=== PATIENT | female | born 1960 | race Caucasian/White ===

== ENCOUNTER → 2016-10-15 | Outpatient (CLI) | payer BC ==
[~2016-10-15] MED LIST: BCPILLS PO
--- NOTE | 2016-10-15 15:34 | DIAGNOSTIC IMAGING REPORT ---
RIGHT KNEE 1 OR 2 VIEWS ROUTINE CLINICAL HISTORY: Right knee pain. COMPARISON: Knee radiographs April 28, 2013. FINDINGS: Alignment of the right knee is anatomic. There is no fracture or suspicious lesion. There is no joint effusion. There is mild medial compartment joint space narrowing with osteophytosis. IMPRESSION: 1. No acute fracture or joint effusion of the right knee. 2. Mild osteoarthritis of the medial compartment of the right knee. Electronically signed by: Ricardo Nolasco M.D. 10/15/2016 3:32 PM Dictated Date/Time: 10/15/2016 3:32 PM
== END | disposition home or self-care (01) ==
LOC: C.RAD 15:13
PROVIDERS: ATTEND Nurse Practitioner
DX: S86.911A Strain of unspecified muscle(s) and tendon(s) at lower leg level, right leg, initial encounter (principal); X58.XXXA Exposure to other specified factors, initial encounter; M25.561 Pain in right knee

== ENCOUNTER → 2016-10-21 | Outpatient (CLI) | payer BC ==
--- NOTE | 2016-10-21 15:37 | MAMMOGRAPHY REPORT ---
BILATERAL DIGITAL SCREENING MAMMOGRAM TOMOSYNTHESIS WITH CAD: 10/21/2016 CLINICAL HISTORY: Routine screening. TECHNIQUE: Breast tomosynthesis in addition to standard 2D mammography was performed. Current study was also evaluated with a Computer Aided Detection (CAD) system. COMPARISON: Comparison is made to exams dated: 10/21/2015 mammogram, 10/17/2014 mammogram, 10/16/2013 reji mogram, 10/12/2012 mammogram, 10/12/2011 mammogram, and 10/10/2010 mammogram - [facility] . BREAST COMPOSITION: There are scattered areas of fibroglandular density in both breasts. FINDINGS: No suspicious masses, calcifications, or areas of architectural distortion are noted in ei ther breast. There has been no significant interval change compared to prior exams. IMPRESSION: ACR BI-RADS CATEGORY 1: NEGATIVE There is no mammographic evidence of malignancy. A 1 year screening mammogram is recommended. The pa tient will receive written notification of the results. Approximately 10% of breast cancers are not detected with mammography. A negative mammographic report should not delay biopsy if a clinically suggestive mass is present. Sarah Melendez M.D. ah/:10/21/2016 12:38:51 Commercial Loan Underwriter: Lucio BEARDEN(R)(M), [facility] letter sent: Normal 1/2 BI-RADS Code: ACR BI-RADS Category 1: Negative
== END | disposition home or self-care (01) ==
LOC: C.MAMM 10:51
PROVIDERS: ATTEND Nurse Practitioner Family
DX: Z12.31 Encounter for screening mammogram for malignant neoplasm of breast (principal)

== ENCOUNTER → 2017-11-03 | Outpatient (CLI) | payer OTHER ==
--- NOTE | 2017-11-04 07:58 | MAMMOGRAPHY REPORT ---
UNILATERAL RIGHT DIGITAL DIAGNOSTIC MAMMOGRAM TOMOSYNTHESIS AND TARGETED RIGHT ULTRASOUND: 11/03/2017 CLINICAL HISTORY: Callback from screening mammogram for right breast asymmetry. TECHNIQUE: The study was acquired using full field digital technology and interpreted from soft copy. Breast tomosynthesis in addition to standard 2D mammography was performed. Spot compression right C C and MLO tomosynthesis images were obtained. COMPARISON: Comparison is made to exams dated: 10/25/2017 mammogram, 10/21/2016 mammogram, 10/21/2015 m ammogram, 10/17/2014 mammogram, 10/16/2013 mammogram, and 10/12/2012 mammogram - [facility] er. BREAST COMPOSITION: The tissue of right breast is almost entirely fatty. FINDINGS: Spot compression views demonstrate a persistent low-density oval circumscribed benign-appearing 6 mm mass within the right upper outer quadrant at approximately 10:00. Targeted ultrasound was performed of the right lateral breast in the region of the mammographic mass. Sonographically normal tissue i s seen in this region, without evidence of a mass or other suspicious correlate for the mammographic mass seen. However, the mass has benign mammographic features and is probably benign. IMPRESSION: ACR-BI-RADS CATEGORY 3: PROBABLY BENIGN, ULTRASOUND ACR-BI-RADS CATEGORY 3: PROBABLY YENY GN Circumscribed 6 mm mass within the right upper outer quadrant, without a clear sonographic correlate evident. The mass is probably benign and may represent a sonographically occult cyst or an intramamm srikanth lymph node. Recommend follow-up diagnostic tomosynthesis mammograms and possible targeted ultras ound of the right breast in 6 months to confirm stability. (05/05/2018) The patient has been verball y notified of the results. Some breast cancers are not detected with mammography. A negative mammographic report should not david y biopsy if a clinically suggestive mass is present. Sarah Melendez M.D. ah/:11/03/2017 14:11:25 Bed Operator: RT Britt(R)(M), [facility] letter sent: Follow Up Recommended 3 OVERALL STUDY BIRADS: 3 Probably benign
== END | disposition home or self-care (01) ==
LOC: C.MAMM 10:09
PROVIDERS: ATTEND Nurse Practitioner Family
DX: N63.11 Unspecified lump in the right breast, upper outer quadrant (principal)

== ENCOUNTER 2020-08-21 05:11 | Observation (INO) ==
--- NOTE | 2020-07-30 13:57 | PAT Medication Instructions ---
Medication Instructions Date of Service July 30, 2020 Home Medications Circulation Vein Support Otc 1 tab PO BID albuterol sulfate [ProAir RespiClick] 2 inh INHALATION Q4H PRN ibuprofen 600 mg PO HS multivitamin 1 tab PO QAM ASK your surgeon for instructions ibuprofen 600 mg PO HS STOP taking 2 weeks before surgery If surgery is within 2 weeks, stop taking as soon as possible. Circulation Vein Support Otc 1 tab PO BID DO NOT take the morning of surgery multivitamin 1 tab PO QAM Take morning of surgery OTHERWISE NOTHING TO EAT OR DRINK AFTER MIDNIGHT: albuterol sulfate [ProAir RespiClick] 2 inh INHALATION Q4H PRN (if needed) Bring your inhaler with you to the hospital. Other Notes If you have any questions please call us at [phone] or [phone] or [phone] or [phone]
--- NOTE | 2020-08-02 09:55 | Anesthesiology Consultation ---
Date of Service August 02, 2020 Assessment & Plan (1) Encounter for pre-operative examination: - COVID screening: Per assessment on 08/02: Travel screen negative, no known COVID-19 positive contacts or current COVID-19 related symptoms. Surgeon arranging preop COVID testing. Awaiting results. - Case reviewed with Dr. Snowden. No further cardiac evaluation and/or testing needed prior to surgery from his perspective. Chart Review Chart Review: Acceptable Risk for Surgery (pending surgeon-ordered PCP clearance) and Patient seen in Pre Admission Testing Teaching & Discussion Pre-Anesthesia Teaching/Discussion Notes: Instructed NPO after midnight before surgery,except medications with 15 cc of water. Medication instructions provided according to the PAT guidelines. History Surgery Operation Date: 08/21/20 07:15 Proposed Procedures p Left Total Knee Arthroplasty - Jorje Bullock MD Height/Weight Height: 5 ft 6.5 in Weight: 146.5 kg Allergies Allergy/AdvReac Type Severity Reaction Status Date / Time Sulfa (Sulfonamide Allergy Unknown Rash Verified 07/09/20 08:03 Antibiotics) Penicillins Allergy Knee Verified 08/01/20 13:26 swelling CHEMICAL Allergy Severe Tongue Uncoded 08/01/20 13:26 swelling, rash, hives Medications Home Medications Medication Instructions Recorded Confirmed Last Taken Circulation Vein Support Otc 1 tab PO BID 07/09/20 07/09/20 Unknown ibuprofen 600 mg PO HS 07/09/20 07/09/20 Unknown multivitamin 1 tab PO QAM 07/09/20 07/09/20 Unknown Past Medical History Medical History Asthma Seasonal, no recent inhaler Heart abnormality 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10, discharged from cardiology, no issues since (no further details able to be obtained per patient) History of seizures Infancy until age 8, no issues since Morbid obesity with BMI of 45.0-49.9, adult Exercise / Class Metabolic Activity III < 4 Walking/Shop/Light housework Past Surgical History Surgical History H/O wisdom tooth extraction Age 14 Past Anesthesia History No Hx of Anesthesia Complications and No Family Hx of Anesthesia Complications History of PONV No Hx of PONV and No Hx of Motion Sickness Social History Smoking Status: Never smoker Do You Dip or Chew Tobacco: No Hx Alcohol Use: Yes Alcohol type: wine alcohol intake frequency: holidays/special occasions only Hx Substance Use: No Review of Systems + snoring. No witnessed apnea events. Patient denies chest pain, shortness of breath, fever, chills, cough, wheezing, palpitations. Physical Exam Vital Signs VITALS BP 158/81 P 67 TEMP 97.9 SP02 93%RA RESP 18 PHYSICAL Full cervical extension range of motion. Full TMJ range of motion. TMD 3.5 finger breaths Mallampati Score 2 Dentition: missing molars, possible cap Lungs: clear throughout to auscultation Cardiac: regular rate and rhythm, no murmurs noted Spine: normal Carotid arteries: negative bruit Extremities: no edema Very thick neck Lab Results Anesthesia Preop Results Results Anesthesia Widget: WBC 5.11 K/uL (4.8-10.8) 08/02/20 Hgb 13.5 g/dL (12.0-16.0) 08/02/20 Hct 41.7 % (37-47) 08/02/20 Plt 215 K/uL (130-400) 08/02/20 Na 138 mmol/L (136-145) 08/02/20 K 4.0 mmol/L (3.5-5.1) 08/02/20 Cl 107 mmol/L (98-107) 08/02/20 CO2 28 mmol/L (21-32) 08/02/20 BUN 22 mg/dl (7-18) H 08/02/20 Creat 0.81 mg/dl (0.6-1.2) 08/02/20 Glucose Level 122 mg/dl (70-99) H 08/02/20 PT 9.4 Seconds (9.0-12.0) 08/02/20 PTT 24.2 Seconds (21.0-31.0) 08/02/20 INR 0.9 (0.9-1.1) 08/02/20 Urine Color Yellow 08/02/20 Urine Appearance Clear (Clear) 08/02/20 Urine pH 5.5 (4.5-7.5) 08/02/20 Urine Specific [place] 1.014 (1.000-1.030) 08/02/20 Urine Protein Trace (Negative) H 08/02/20 Urine Glucose (UA) Negative (Negative) 08/02/20 Urine Ketones Negative (Negative) 08/02/20 Urine Blood Negative (Negative) 08/02/20 Urine Nitrite Negative (Negative) 08/02/20 Urine Bilirubin Negative (Negative) 08/02/20 Urine Urobilinogen Negative (Negative) 08/02/20 Urine Leukocyte Esterase Negative (Negative) 08/02/20 Urine WBC (Auto) 1-5 /hpf (0-5) 08/02/20 Urine RBC (Auto) 0-4 /hpf (0-4) 08/02/20 Urine Hyaline Casts (Auto) 1-5 /lpf (0-5) 08/02/20 Urine Epithelial Cells (Auto) >30 /lpf (0-5) H 08/02/20 Urine Bacteria (Auto) Negative (Negative) 08/02/20 Blood Type A Positive 08/02/20 Antibody Screen NEGATIVE 08/02/20 Testing Laboratory Results Blood Type A Positive 08/02/20 09:17 Antibody Screen NEGATIVE 08/02/20 09:17 Electrocardiogram Date: 08/02/20 SR with first degree AVB at 62bpm. Otherwise normal ECG. Chest X-Ray Date: 08/02/20 FINDINGS: PA and lateral chest radiographs are compared to study dated 03/09/2009. The examination is degraded by large body habitus. The cardiomediastinal silhouette is top normal for projection noting atherosclerotic calcification of the thoracic aorta. There is mild bibasilar atelectasis. The lungs and pleural spaces are otherwise clear. There is no pneumothorax. The bony thorax appears intact. Degenerative change is seen throughout the thoracic spine. IMPRESSION: No active disease in the chest.
--- NOTE | 2020-08-02 16:21 | Electrocardiogram Report ---
Test Reason : Blood Pressure : / mmHG Vent. Rate : 062 BPM Atrial Rate : 062 BPM P-R Int : 216 ms QRS Dur : 078 ms QT Int : 400 ms P-R-T Axes : 064 037 030 degrees QTc Int : 406 ms Sinus rhythm with 1st degree A-V block Otherwise normal ECG No previous ECGs available Confirmed by Juan Antonio Waddell ([id number]) on 08/02/2020 4:21:03 PM Referred By: Jorje Bullock Confirmed By:Alvarez Waddell
--- NOTE | 2020-08-18 21:58 | History & Physical Report ---
Date of Service August 18, 2020 Assessment & Plan (1) Left knee DJD: Postoperative prescriptions for Percocet and Coumadin will be provided at discharge from the hospital. Anticipate discharge to home with home health services. Preoperative lab work, EKG, and chest x-ray have been ordered. She will see PATS for evaluation. She has an appointment to see her PCP for preoperative clearance on Wednesday. She already has access to a walker and cane. The patient is currently asymptomatic of any COVID-19 symptoms. She is aware of the COVID-19 risks associated with surgery. She will obtain COVID-19 testing, the week before surgery. PDMP was checked and there are no concerning findings. She already has her postop appointment for staple removal on 09/05/2020 with me. History of Present Illness Chief Complaint: Left knee pain Primary Care Provider: NO PCP This 60-year-old female presents for her preoperative history and physical. She is scheduled to undergo a left knee total knee arthroplasty on 08/21/2020. The patient has had left knee pain for decades. It has been tolerable for many years. She states over the last 6-9 months, it has become significantly worse. She is now having difficulty with ambulation. Pain is worse with weightbearing. It is affecting her ADLs. No numbness or tingling. She denies any significant loss of motion. Frequent night pain. No intraarticular effusion that she is aware of. No specific trauma. Preoperative imaging has been obtained. Allergies Allergy/AdvReac Type Severity Reaction Status Date / Time Sulfa (Sulfonamide Allergy Unknown Rash Verified 07/09/20 08:03 Antibiotics) Penicillins Allergy Knee Verified 08/01/20 13:26 swelling CHEMICAL Allergy Severe Tongue Uncoded 08/01/20 13:26 swelling, rash, hives Home Medications Medication Instructions Recorded Confirmed Type Circulation Vein Support Otc 1 tab PO BID 07/09/20 07/09/20 History ibuprofen 600 mg PO HS 07/09/20 07/09/20 History multivitamin 1 tab PO QAM 07/09/20 07/09/20 History Past Med/Surg History Medical History Asthma Seasonal, no recent inhaler Heart abnormality 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10, discharged from cardiology, no issues since (no further details able to be obtained per patient) History of seizures Infancy until age 8, no issues since Morbid obesity with BMI of 45.0-49.9, adult Surgical History H/O wisdom tooth extraction Age 14 Family History Other Diabetes Heart disease Kidney disease Prostate cancer Social History Smoking Status: Never smoker Second Hand Exposure: Yes (PARENTS SMOKED); Hx Alcohol Use: Yes Alcohol type: wine Hx Substance Use: No Preferred Language: Sinhala Communication Ability: Effective Felt Hat Inspector And Packer Required: No Beliefs That Will Affect Care: None Current Living Situation: Alone Feels Safe at Home: Yes Assistive Devices: Cane and Glasses Review of Systems Review of Systems: All systems reviewed & are unremarkable except as noted in HPI & below A total of 10 systems were reviewed. Physical Exam Physical Exam: Vitals: Height 168.5 cm, weight 146.8 kilograms, BMI 51.7. Temperature 36.0, BP 142/84, pulse 88, O2 sat 98% on room air, respirations 20. General: Well-developed, well-nourished, obese, large white female, in no acute distress. Sitting in a chair. Alert and oriented. Skin: Warm and dry with good turgor. No rashes or lesions. No ecchymosis or erythema. No intraarticular effusion. HEENT: Normocephalic, atraumatic. Eyes: PERRLA, EOMI. Nares and oropharynx exams deferred due to COVID precautions. Heart: RRR, no MGR. Lungs: Clear to auscultation bilaterally, no crackles, rhonchi or wheezing, good air movement. Abdomen: Obese, bowel sounds present x4, soft, nontender. No organomegaly. Musculoskeletal: Left knee evaluation reveals no intraarticular effusion. She has full terminal extension. Flexion to greater than 110 degrees. Strength is 5/5 with fair quad tone. Stable collateral ligaments. She has focal discomfort with palpation over the medial and lateral joint lines. Crepitus is palpable with motion. No defect of the patellar tendon or quadriceps tendon. Ambulates with a shuffling antalgic gait. Neurologic: Gross sensation is intact across both lower extremities by soft touch. Peripheral pulses are 2+. Results & Data Results & Data ([facility]) Diagnostic Findings Radiographic imaging previously obtained in April shows endstage DJD of the knees, left greater than right. Periarticular osteophytes, subchondral sclerosis, and joint space narrowing are all present.
[2020-08-21] MEDS ORDERED: LR 60ML/HR IV SCH (06:00)
[2020-08-21] MEDS ORDERED: TRANEXAMIC ACID 1,000 MG **IV Pre-op IV SCH (06:00)
[2020-08-21] MEDS ORDERED: LR 500ML BOLUS, THEN 15ML/HR IV SCH (06:00)
[2020-08-21] MEDS ORDERED: ROPIVACAINE 0.5% HCL/PF 150 MG, BUPIVACAINE 0.75% MPF 20 ML, EPINEPHrine 0.15 MG, Ketor... INFIL SCH (06:00)
--- NOTE | 2020-08-21 06:26 | History & Physical Bridge Note ---
Date of Service August 21, 2020 History & Physical Bridge Note I have examined the patient, reviewed the History & Physical and in the interval since the performance of the History & Physical I have noted the following changes of clinical significance: consent obtained/site verified/covid screen negative.no changes noted
[2020-08-21] MEDS ORDERED: BUPIVACAINE 0.25% 30 ML VIAL ONE (06:27)
[2020-08-21] MEDS ORDERED: BUPIVACAINE 0.5 % 5 MG/1 ML PF 10ML VIAL ONE (06:27)
[2020-08-21] MEDS ORDERED: EPINEPHrine INJ 1 MG/ML AMP ONE (06:27)
[2020-08-21] MEDS ORDERED: PROPOFOL IV EMULSION 10 MG/ML 20 ML VIAL IV ONE (06:37)
[2020-08-21] MEDS ORDERED: fentaNYL citrate 100 MCG/2 ML VIAL ONE (06:37)
[2020-08-21] MEDS ORDERED: MIDAZOLAM HCL 1 MG/ML 2ML VIAL ONE ×2 (06:37→08:27)
[2020-08-21] MEDS ORDERED: LIDOCAINE HCL 2% 2 ML VIAL/AMP(20MG/ML) INFIL ONE (06:37)
[2020-08-21] MEDS ORDERED: PROMETHAZINE HCL 12.5 MG in SODIUM CHLORIDE 0.9% 50 ML IV PRN (06:43)
[2020-08-21] MEDS ORDERED: ePHEDrine sulfate 50 MG/ML AMP IV PRN (06:43)
[2020-08-21] MEDS ORDERED: ATROPINE SULFATE 0.1 MG/ML 10ML SYR IV PRN (06:43)
[2020-08-21] MEDS ORDERED: fentaNYL citrate 100 MCG/2 ML VIAL IV PRN (06:43)
[2020-08-21] MEDS ORDERED: HYDROmorphone INJ 2 MG/ML SYR/VIAL IV PRN (06:43)
[2020-08-21] MEDS ORDERED: ONDANSETRON INJ 2 MG/ML 2 ML VIAL IV PRN ×2 (06:43→10:03)
[2020-08-21] MEDS ORDERED: Nursing to Pharmacy Communication SCH (06:45)
[2020-08-21] MEDS ORDERED: ORTHO JOINT ANESTHETIC ONE (06:50)
[2020-08-21] MEDS ORDERED: KETAMINE 50 MG/5 ML SYRINGE ONE (07:05)
--- NOTE | 2020-08-21 08:40 | Post Operative Brief Note ---
Immediate Post Op Note v1 Date of Surgery August 21, 2020 Pre & Post Diagnosis Operation Date: 08/21/20 07:00 Pre-Op Diagnosis: Left Knee Degenerative Joint Disease Post-Op Diagnosis: Left Knee Degenerative Joint Disease I identified the patient and participated in the time-out.: Yes Procedure Operation Date: 08/21/20 07:00 Actual Procedures p Left Total Knee Arthroplasty(Left) - Jorje Bullock MD Surgeon Jorje Bullock MD Extension Division [facility] Estimated Blood Loss 50 Findings Consistent with Post-Op Diagnosis
--- NOTE | 2020-08-21 08:48 | Operative Report ---
Post Operative Report Pre & Post Diagnosis Operation Date: 08/21/20 07:00 Pre-Op Diagnosis: Left Knee Degenerative Joint Disease Post-Op Diagnosis: Left Knee Degenerative Joint Disease I identified the patient and participated in the time-out.: Yes Procedure Operation Date: 08/21/20 07:00 Actual Procedures p Left Total Knee Arthroplasty(Left) - Jorje Bullock MD Surgeon CHIVO Bullock MD Fruit Worker Anny RAMIREZ Estimated Blood Loss 50 Findings Consistent with Post-Op Diagnosis Specimens see operative report Drains none Complications none Disposition Accompanied Patient To Recovery: Yes Disposition: Recovery Room Indications This 60-year-old female presented to the office with complaints of intractable bilateral knee pain, left greater than right. She had tried conservative care measures without improvement. Patient elected to proceed with surgical invention after being educated about potential risks and outcomes. Preoperative imaging was obtained. Description of Procedure Patient was administered a spinal anesthetic and then taken to the operating room where she was given sedation. She was prepped and draped in the usual sterile fashion. Please see Dr. Bullock's operative report for specifics of the procedure. I was present for the entire case from initial patient positioning through final wound closure. Assistance was provided in tissue retraction, hemostasis, trial implant placement, final implant placement, and final wound closure. Patient was taken to the recovery room in satisfactory condition. I attest to the content of the Intraoperative Record and any orders documented therein. Any exceptions are noted below.
--- NOTE | 2020-08-21 08:58 | Operative Report (OR) ---
DATE OF OPERATION: 08/21/2020 SURGEON: Jorje Bullock MD. MEDICAL RECORDS SUPERVISOR: Michael Mccormick PA-C. No resident or fellow available. PREOPERATIVE DIAGNOSIS: Osteoarthritis, left knee with varus deformity. POSTOPERATIVE DIAGNOSIS: Osteoarthritis, left knee with varus deformity. OPERATION PERFORMED: Cemented left total knee replacement. SUMMARY OF IMPLANTS: Size 2.5 left femur, size 2.5 mobile bearing tray, size 2.5 x 17.5 insert, 38 patella, 2 bags of Palacos G cement. ESTIMATED BLOOD LOSS: 50 mL. CRYSTALLOID: Per anesthesia. BONE PATHOLOGY: Pending. DVT prophylaxis per protocol. PERIOPERATIVE SITUATION: Medically cleared female who has a substantial tricompartmental osteoarthritis with [id number] medial compartment. She has a high BMI. At this point in time, she knows the risks and consequences associated with that, but wants to proceed with surgical treatment based on her intractable pain. DESCRIPTION OF PROCEDURE: The patient was appropriately identified, site verified, consent verified. Antibiotics confirmed as being given. The left lower extremity was prepped and draped in usual routine fashion. The tourniquet was inflated to 300 mmHg after exsanguination of limb with a rubber Esmarch bandage for a total of 49 minutes. A tourniquet balanced well. Midline exposure utilized. Parapatellar arthrotomy performed. Synovectomy completed, osteophytes resected. Distal femur entered. Distal femur was then resected 12 mm, proximal tibia 4 mm, extension gap was excellent. The femur was sized between a 3 and a 2.5, and was measured 3 cut 2.5. There was no notching. The flexion gap was good. Box cut was then made and a size 2.5 fit well. The tibia was sized to a 2.5, appropriate template applied and appropriate broaching and reaming carried out and with trial reduction with a 17.5 gave the best mid range stability without losing extension. The patella tracked well. The patella was resected leaving 16 mm and a 38 patella button was then seated. It tracked well. The trial implants were then removed after all the Orthomix was injected in and about the knee including posteriorly. The wound irrigated with Betadine Pulsavac and then the permanent cemented in position, tibia, femur, patella in that order. After 12 minutes, the tourniquet deflated. Minor bleeding points controlled with electrocautery. After 14 minutes, the knee was reinspected. No cement removal was required. Wound was irrigated, then the permanent liner seated, knee reduced and then closed at 30 degrees of flexion with #2 Vicryl, 2-0 Vicryl and stainless steel clips. Appropriate dressing was applied including a Edwin Dunbar dressing because of her high BMI. We will try to keep the wound protected and supported as well as possible due to her overall edema. The patient tolerated the procedure well and was transferred to recovery room in satisfactory condition having tolerated the procedure well. I attest to the content of the Intraoperative Record and any orders documented therein. Any exception s are noted below.
--- NOTE | 2020-08-21 09:09 | Discharge Summary (DS) ---
POTENTIAL DATE OF DISCHARGE: 08/22/2020. CHIEF COMPLAINT: Left knee pain. HISTORY OF PRESENT ILLNESS AND HOSPITAL COURSE: The patient underwent elective left total knee replacement. Today the hospital course has been uneventful. Longstanding pain, has varus deformity, significant disease by x-ray. Understood risks and consequences and underwent left total knee replacement, cemented. PREOPERATIVE MEDICATIONS: Please see medication reconciliation sheet, includes ibuprofen, multivitamin. ALLERGIES: ALLERGIC TO SULFA, PENICILLINS, AND CHEMICALS. She tolerates Ancef. PAST MEDICAL HISTORY: Remarkable for asthma and heart abnormality, likely an ASD that closed, history of seizures, morbid obesity, BMI of 50. PAST SURGICAL HISTORY: Remarkable for wisdom tooth extraction. FAMILY HISTORY: Diabetes, heart disease, kidney disease, prostate cancer. SOCIAL HISTORY: Reveals that she does not smoke except had secondhand exposure from her parents. Social alcohol. Lives alone. Feels safe. Uses a cane and wears glasses. REVIEW OF SYSTEMS: Reveals no chest pain, shortness of breath, fever, chills, nausea, vomiting or headache. ASSESSMENT: Doing well status post left total knee replacement. We will have case management assess and set up home services. Follow up on Wednesday for dressing change, removal in the office.
--- NOTE | 2020-08-21 09:13 | Progress Notes ---
DATE: 08/21/2020 Postop check, status post left total knee replacement. The patient tolerated the procedure well. She denies any chest pain, shortness of breath, fever, chills, nausea, vomiting or headache. Spinal is in place, has no pain. Wound dressing clean, dry and intact. X-rays are pending. Abdomen is soft, nontender. Upper extremity within normal limits. Facial exam within normal limits. ASSESSMENT: Doing well. Continue postoperative care pathway. Case management would be involved. High BMI; however, normal, needs to get up and move around as soon as possible. Use extra-large knee immobilizer for this. Postoperative antibiotics per course. Deep vein thrombosis prophylaxis per protocol. Discussed the situation with her brother. He was informed she did well to date.
--- NOTE | 2020-08-21 09:30 | XRay Report ---
XR knee LT 1 or 2V routine CLINICAL HISTORY: Postoperative study. Degenerative arthritis. COMPARISON: 04/15/2020 DISCUSSION: There are postsurgical changes of a total left knee arthroplasty and patellar resurfacing . The femoral and tibial components appear well seated. There is gas present within the soft tissues consistent with recent surgery. There are overlying skin jasbir. IMPRESSION: Postsurgical changes of a total left knee arthroplasty. ACT 112: Negative or not required by law. Electronically signed by: Jesus Dailey M.D. 08/21/2020 9:29 AM
--- NOTE | 2020-08-21 09:32 | Anesthesiology Progress Note ---
Date of Service August 21, 2020 Anesthesia Post Procedure Vital Signs Vital Signs: Temp Pulse Pulse Resp BP BP Pulse Ox 08/21/20 09:20 64 18 137/65 98 08/21/20 09:10 65 18 120/57 L 98 08/21/20 09:00 65 14 114/60 100 08/21/20 08:50 69 15 111/52 L 100 08/21/20 08:48 36.3 C L 74 17 116/57 L 100 08/21/20 05:52 36.7 C 78 18 168/88 H 97 Pain Intensity Left Knee: Pain Intensity: 3 Transfer of Care Handoff Completed per policy Notes Mental Status: alert / awake / arousable and participated in evaluation Patient Amnestic to Procedure: Yes Nausea / Vomiting: adequately controlled Pain: adequately controlled Airway Patency, RR, SpO2: stable & adequate BP & HR: stable & adequate Hydration State: stable & adequate Anesthetic Complications: no major complications apparent and Pt Satisfied with anesthetic care
[2020-08-21] MEDS ORDERED: diphenhydrAMINE 50 MG/ML VIAL IV PRN (10:03)
[2020-08-21] MEDS ORDERED: oxyCODONE HCL IR 5 MG TAB (IMMEDIATE RELEASE) PO PRN (10:03)
[2020-08-21] MEDS ORDERED: ALUMINUM/MAGNESIUM SUSP 30 ML UDC PO PRN (10:03)
[2020-08-21] MEDS ORDERED: bisacodyL 10 MG SUPP PR PRN (10:03)
[2020-08-21] MEDS ORDERED: HYDROmorphone INJ 0.5 MG/0.5 ML SYR IV PRN (10:03)
[2020-08-21] MEDS ORDERED: MAGNESIUM HYDROXIDE SUSP 30 ML UDC PO PRN (10:03)
[2020-08-21] MEDS ORDERED: METOCLOPRAMIDE HCL INJ 5 MG/ML 2 ML VIAL IV PRN (10:03)
[2020-08-21] MEDS ORDERED: NALOXONE HCL 0.4 MG/1 ML VIAL/CARP IV PRN (10:03)
[2020-08-21] MEDS ORDERED: SODIUM CHLORIDE 0.9% 1000ML 1,000 ML IV SCH (10:03)
[2020-08-21] MEDS: KETOROLAC 30 MG/ML VIAL IV SCH ×3 (10:56→21:24)
--- NOTE | 2020-08-21 11:07 | Progress Notes ---
DATE: 08/21/2020 SUBJECTIVE: Postop check. The patient is doing well. Denies any chest pain, shortness of breath, fever, chills, nausea, vomiting or headache. OBJECTIVE: Vital signs are stable. She is afebrile. Spinal is wearing off and starting to get toe extension and flexion, both lower extremities. Wound dressing clean, dry and intact. X-RAYS: Postop look excellent. ASSESSMENT: Continue postoperative care pathway. Mobilize CHRISTY. Hep-Lock IV since she eats a full meal.
[2020-08-21] MEDS: DOCUSATE SODIUM 100 MG CAP PO SCH ×2 (12:15→21:23)
[2020-08-21] MEDS: MULTIVITAMIN TAB PO SCH (12:15)
[2020-08-21] MEDS ORDERED: PNEUMOCOCCAL POLYSACCHARIDES 25 MCG/0.5 ML VIAL/SYR IM ONE (14:45)
[2020-08-21] MEDS ORDERED: TRANEXAMIC ACID / 0.7% NACL 1,000 MG/100 ML BAG IV SCH (14:52)
[2020-08-21] MEDS: ACETAMINOPHEN 500 MG TAB PO SCH ×2 (15:02→21:23)
[2020-08-21] MEDS: ceFAZolin 2000MG 2,000 MG/15 ML SYR IV SCH ×2 (15:03→23:16)
[2020-08-21 15:21] LABS: Prothrombin Time 9.8 Seconds (9.0-12.0)
[2020-08-21] MEDS: ORTHO WARFARIN NOMOGRAM SCH (15:46)
[2020-08-21] MEDS ORDERED: WARFARIN SOD 5 MG TAB PO SCH (16:00)
[2020-08-21] MEDS: ASCORBIC ACID 500 MG TAB PO SCH (17:12)
[2020-08-21] MEDS: FERROUS GLUCONATE 324 MG TAB PO SCH (17:12)
[2020-08-21] MEDS ORDERED: SENNA 8.6 MG TAB PO SCH (21:00)
[2020-08-22] MEDS: KETOROLAC 30 MG/ML VIAL IV SCH (04:38)
[2020-08-22] MEDS: ACETAMINOPHEN 500 MG TAB PO SCH (06:02)
[2020-08-22 07:27] LABS: Hematocrit (blood only) 35.5 % (37-47); Hemoglobin 11.4 g/dL (12.0-16.0); Mean Corpuscular Hemoglobin 28.8 pg (25-34); Mean Corpuscular Hgb Conc 32.1 g/dL (32-36); Mean Corpuscular Volume 89.6 fL (80-100); Mean Platelet Volume 10.3 fL (7.4-10.4); Platelet Count 198 K/uL (130-400); RDW Coefficient of Variation 13.7 % (11.5-14.5); Red Blood Count 3.96 M/uL (4.2-5.4); White Blood Count 7.66 K/uL (4.8-10.8)
[2020-08-22 07:37] LABS: Prothrombin Time 10.2 Seconds (9.0-12.0)
--- NOTE | 2020-08-22 07:53 | Progress Notes ---
DATE: 08/22/2020 SUBJECTIVE: Postop day #1 status post left total knee replacement. The patient is doing well. She is sitting up in her chair. She is in good spirits. She denies chest pain, shortness of breath, fever, chills, nausea, vomiting or headache. OBJECTIVE: Vital signs are stable. She is afebrile. She is eating, voiding, drinking. Calves nontender. Neurovascular check, femoral sciatic nerve is normal. Labs pending. ASSESSMENT: Doing well. Discharge to home today after PT, OT. Coumadin dose per nomogram.
[2020-08-22 07:54] LABS: BUN Creatinine Ratio 24.3 (10-20); Creatinine Clr Calc Pharmacy 93.6 ml/min; Est GFR (African American) 76.3 ml/min; Est GFR (Non-African American) 65.9 ml/min; Potassium 4.5 mmol/L (3.5-5.1)
[2020-08-22] MEDS ORDERED: dexAMETHasone 10 MG in SYRINGE 0 ML IV SCH (08:00)
[2020-08-22] MEDS: ASCORBIC ACID 500 MG TAB PO SCH (08:50)
[2020-08-22] MEDS: FERROUS GLUCONATE 324 MG TAB PO SCH (08:50)
[2020-08-22] MEDS: MULTIVITAMIN TAB PO SCH (08:50)
[2020-08-22] MEDS: DOCUSATE SODIUM 100 MG CAP PO SCH (08:53)
--- NOTE | 2020-08-22 10:36 | Orthopedic Progress Note ---
Date of Service August 22, 2020 Assessment & Plan (1) S/P total knee replacement using cement: Patient was seen in her room. Conservative care measures were discussed. Postsurgical dressings were changed by me. [place] type dressing was applied for edema control. She will return to the office on Wednesday for another dressing change. Patient is aware. Anticipate discharge to home today after PT/OT. Patient would like to stay for lunch. Written discharge instructions were provided. Coumadin today per nomogram. Prescriptions for Percocet and Coumadin were sent to her pharmacy. Follow-up in the office on September 05 as scheduled for staple removal. Continue use of the walker for ambulation. Admission and Anticipated Discharge Date Admission Date: August 21, 2020 Subjective Patient is seen in her room this morning. She is sitting up in bed. In good spirits. Conversive. Denies any chest pain, nausea, vomiting, shortness of breath, or abdominal pain. No significant knee pain at this time. She states she slept fairly well. She has already been out of bed, and feels ready for discharge to home. No other complaints. Review of Systems Review of Systems: Unchanged from yesterday. Physical Exam Physical Exam: General: Well-developed, well-nourished, middle-aged female, in no acute distress. Sitting in her bed. Alert and oriented. Conversive. Skin: Warm and dry with good turgor. No rashes or lesions. Postsurgical dressings are in place. Upon removal, she has no significant ecchymosis or edema. [place] are intact. Wound edges are well approximated. No active bleeding. Scant dried drainage on her dressings. Musculoskeletal: Patient has intact motor function of her hip, knee, and ankle. Full terminal extension. Flexion to around 45 degrees easily. She is able to perform a straight leg raise with minimal assistance. Neurologic: Gross sensation is intact across the left lower extremity by soft touch. Peripheral pulses are 2+. Results & Data ([facility]) Vital Signs (Past 12 Hours) Vital Signs Temp Pulse Resp BP Pulse Ox 08/22/20 07:54 36.5 C 62 16 125/73 96 08/22/20 03:35 36.8 C 80 16 136/83 95 08/21/20 22:35 36.9 C 69 16 134/83 91 Laboratory Results H&H obtained today are 11.4 and 35.5. WBCs normal at 7.66. INR is 1.0. PRP is almost entirely unremarkable. Mild elevation in glucose at 144. Mild elevation in BUN at 23. Sodium and potassium are normal.
[2020-08-22] MEDS: ORTHO WARFARIN NOMOGRAM SCH (12:05)
[2020-08-22] MEDS ORDERED: WARFARIN SOD 5 MG TAB PO STA (12:13)
== END 2020-08-22 13:41 | disposition home health service (06) ==
LOC: ASU 05:11 → 3E 05:11

== ENCOUNTER 2023-09-15 06:46 | Observation (INO) ==
--- NOTE | 2023-08-17 14:33 | PAT Medication Instructions ---
Medication Instructions Date of Service August 17, 2023 Home Medications multivitamin 1 tab PO QDD Circulation And Vein Support 1 tab PO BID berberine-herbal comb no.18 capsule 1 cap PO QAM cinnamon bark 1 dose PO QAM Fibermucil 1 tabs PO BID albuterol sulfate 90 mcg/actuation aerosol inhaler 1 inh inhalation QID PRN Wheezing ascorbic acid 7.5 mg-vit E 7.5 unit-biotin 1,250 mcg chewable tablet (Hair,Skin,Nails with Biotin) 1 tab PO QAM aspirin 81 mg tablet,delayed release 81 mg PO DAILY PRN Pain cranberry conc 250 mg-vit C 30 mg-Bacillus coagulans 3.5 mg tablet (Cranberry Urinary Tract Health) 1 tab PO DAILY loratadine 10 mg tablet (Claritin) 10 mg PO DAILY PRN Congestion metformin 500 mg tablet 500 mg PO QAM sitagliptin phosphate 25 mg tablet (Januvia) 25 mg PO PM MEDICATION INSTRUCTIONS: Continue as directed albuterol sulfate 90 mcg/actuation aerosol inhaler 1 inh inhalation QID PRN Wheezing (use if needed; BRING TO HOSPITAL) ASK your prescriber and surgeon aspirin 81 mg tablet,delayed release 81 mg PO DAILY PRN Pain STOP taking 2 weeks before surgery cranberry conc 250 mg-vit C 30 mg-Bacillus coagulans 3.5 mg tablet (Cranberry Urinary Tract Health) 1 tab PO DAILY ascorbic acid 7.5 mg-vit E 7.5 unit-biotin 1,250 mcg chewable tablet (Hair,Skin,Nails with Biotin) 1 tab PO QAM Circulation And Vein Support 1 tab PO BID berberine-herbal comb no.18 capsule 1 cap PO QAM cinnamon bark 1 dose PO QAM DO NOT take the morning of surgery metformin 500 mg tablet 500 mg PO QAM Fibermucil 1 tabs PO BID loratadine 10 mg tablet (Claritin) 10 mg PO DAILY PRN Congestion Take evening before surgery sitagliptin phosphate 25 mg tablet (Januvia) 25 mg PO PM multivitamin 1 tab PO QDD metformin 500 mg tablet 500 mg PO QAM Fibermucil 1 tabs PO BID Other Notes Reminder: NOTHING TO EAT OR DRINK AFTER MIDNIGHT If you have any questions please call us at [phone] or [phone] or [phone] or [phone]
--- NOTE | 2023-08-27 10:19 | Anesthesiology Consultation ---
Date of Service August 27, 2023 Assessment & Plan (1) Encounter for pre-operative examination: - cardiac murmur-Case discussed with Dr. Ballard who advised updating echocardiogram if feasible prior to surgery, but that if it could not be completed patient can proceed given tolerance of neuraxial anesthesia with previous orthopedic surgery. Message left requesting return call from patient. Optimization form completed to be faxed to PCP. - check BSG am DOS. - surgeon ordered medical clearance (Dr. Noelle Lovelace). - Outpatient joint assessment: Patient is currently scheduled for inpatient pathway. If re-evaluated and patient/surgeon requests outpatient pathway, patient is not recommended candidate for outpatient joint program from anesthesia standpoint. Chart Review Chart Review: Pending: Refer to Additional Notes / Consult section and Patient seen in Pre Admission Testing Teaching & Discussion Pre-Anesthesia Teaching/Discussion Notes: Instructed NPO after midnight before surgery, except medications with 15 cc of water. Medication instructions provided according to the PAT guidelines. History Surgery Operation Date: 09/15/23 07:00 Proposed Procedures p Right Total Knee Arthroplasty - Jorje Bullock MD Height/Weight Height: 5 ft 6.5 in Weight: 133.3 kg Allergies Allergy/AdvReac Type Severity Reaction Status Date / Time Penicillins Allergy Unknown Knee Verified 08/16/23 11:50 swelling Sulfa (Sulfonamide Allergy Unknown Rash Verified 08/16/23 11:50 Antibiotics) purell Allergy Intermediate lips swell Uncoded 08/16/23 11:50 adilene products Allergy Unknown J&J Uncoded 08/16/23 11:50 CLEANING PRODCUTS - Rash, BLISTERS MOUTH/THROAT, SINUSES Medications Home Medications Medication Instructions Recorded Confirmed Last Taken multivitamin 1 tab PO QDD 07/09/20 08/16/23 07/01/21 Circulation And Vein Support 1 tab PO BID 06/19/21 08/16/23 07/01/21 berberine-herbal comb no.18 capsule 1 cap PO QAM 06/19/21 08/16/23 07/01/21 cinnamon bark 1 dose PO QAM 09/11/22 08/16/23 Unknown Fibermucil 1 tabs PO BID 08/16/23 08/16/23 Unknown albuterol sulfate 90 mcg/actuation 1 inh inhalation QID PRN Wheezing 08/16/23 08/16/23 Unknown aerosol inhaler ascorbic acid 7.5 mg-vit E 7.5 1 tab PO QAM 08/16/23 08/16/23 Unknown unit-biotin 1,250 mcg chewable tablet (Hair,Skin,Nails with Biotin) aspirin 81 mg tablet,delayed 81 mg PO DAILY PRN Pain 08/16/23 08/16/23 Unknown release cranberry conc 250 mg-vit C 30 1 tab PO DAILY 08/16/23 08/16/23 Unknown mg-Bacillus coagulans 3.5 mg tablet (Cranberry Urinary Tract Health) loratadine 10 mg tablet (Claritin) 10 mg PO DAILY PRN Congestion 08/16/23 08/16/23 Unknown metformin 500 mg tablet 500 mg PO QAM 08/16/23 08/16/23 Unknown sitagliptin phosphate 25 mg tablet 25 mg PO PM 08/16/23 08/16/23 Unknown (Tariq) Past Medical History Medical History (Updated 08/27/23 @ 10:22 by Sharita Justin PA-C) Asthma Seasonal per pt, more affected in fall-denies needing rescue inhaler recently BMI 50.0-59.9, adult Cataract right eye Diabetes mellitus, type 2 NIDDM GERD (gastroesophageal reflux disease) rare Heart abnormality 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 Exercise / Class Metabolic Activity III < 4 Walking/Shop/Light housework (denies chest discomfort or shortness of breath with usual activities, less than 8 steps in home) Past Family History Family History Aunt Diabetes Uncle Diabetes Aunt Diabetes Other Heart disease Kidney disease Prostate cancer Past Surgical History Surgical History H/O wisdom tooth extraction Age 14 History of dilatation and curettage History of total left knee replacement 08/21/2020: SAB at L3 + PNB. No postop issues per anesthesia progress note. Past Anesthesia History No Family Hx of Anesthesia Complications and Other (awareness with 2020 TKA) History of PONV No Hx of Motion Sickness and History of PONV (in EMR-patient denies) Social History Smoking Status: Never smoker Do You Dip or Chew Tobacco: No Hx Alcohol Use: No Hx Substance Use: No substance use type: does not use Review of Systems Patient denies chest pain, shortness of breath, dyspnea on exertion, fever, chills, cough, wheezing, or palpitations. Physical Exam Vital Signs Vitals BP 135/98 P 71 TEMP 98.1 SP02 94% on RA RESP 17 Physical Patient resting comfortably in chair in no acute distress, alert and oriented, responding appropriately throughout visit Full cervical extension range of motion without pain TMD 3.5 finger breadths Mallampati Score 2 Dentition: several caps/crowns, denies chipped or loose teeth, implants or bridges Lungs: normal respiratory effort. Good air movement, clear throughout to auscultation, no adventitious breath sounds Cardiac: regular rate and rhythm, 2/6 systolic murmur (known), no gallops or rubs Carotid arteries: negative bruit bilat Lab Results Anesthesia Preop Results Results Anesthesia Widget: WBC 4.37 K/ul (4.8-10.8) L 08/27/23 Hgb 13.6 g/dl (12.0-16.0) 08/27/23 Hct 43.0 % (37.0-47.0) 08/27/23 Plt 202 K/uL (130-400) 08/27/23 Na 140 mmol/L (136-145) 08/27/23 K 4.7 mmol/L (3.5-5.1) 08/27/23 Cl 104 mmol/L (98-107) 08/27/23 CO2 30 mmol/L (21-32) 08/27/23 BUN 19 mg/dl (6-23) 08/27/23 Creat 0.87 mg/dl (0.6-1.2) 08/27/23 Glucose Level 160 mg/dl (70-99(Fasting)) H 08/27/23 PT 9.9 Seconds (9.0-12.0) 05/17/24 PTT 26 Seconds (21-31) 08/27/23 INR 0.9 (0.9-1.1) 08/27/23 HA1c 7.3 % (4.5-5.6) H 08/27/23 Urine Color Yellow 08/27/23 Urine Appearance Clear (Clear) 08/27/23 Urine pH 5.5 (4.5-7.5) 08/27/23 Urine Specific [place] 1.021 (1.000-1.030) 08/27/23 Urine Protein 1+ (Negative) H 08/27/23 Urine Glucose (UA) Negative (Negative) 08/27/23 Urine Ketones Negative (Negative) 08/27/23 Urine Blood Negative (Negative) 08/27/23 Urine Nitrite Negative (Negative) 08/27/23 Urine Bilirubin Negative (Negative) 08/27/23 Urine Urobilinogen Negative (Negative) 08/27/23 Urine Leukocyte Esterase 1+ (Negative) H 08/27/23 Urine WBC (Auto) 6-10 /hpf (0-5) H 08/27/23 Urine RBC (Auto) 0-2 /hpf (0-2) 08/27/23 Urine Hyaline Casts (Auto) 0-2 /lpf (0-2) 08/27/23 Urine Epithelial Cells (Auto) 3-5 /hpf (0-2) H 08/27/23 Urine Bacteria (Auto) None Seen (None Seen) 08/27/23 Blood Type A Positive 08/27/23 Antibody Screen NEGATIVE 08/27/23 Testing Electrocardiogram Date: 08/27/23 Sinus rhythm with 1st degree AV block with occasional PVCs, rate 71 bpm Chest X-Ray Date: 08/27/23 No acute chest disease.
--- NOTE | 2023-09-15 05:16 | History & Physical Bridge Note ---
Date of Service September 15, 2023 History & Physical Bridge Note I have examined the patient, reviewed the History & Physical and in the interval since the performance of the History & Physical I have noted the following changes of clinical significance:consent and site verified. no changes noted
[~2023-09-15 06:46] MED LIST changes: -BCPILLS PO; +BUPIVACAINE 0.25% PF 30 ML VIAL ONE; +BUPIVACAINE 0.5 % 5 MG/1 ML PF 10ML VIAL ONE
[2023-09-15] MEDS ORDERED: MIDAZOLAM HCL 1 MG/ML 2ML VIAL ONE (07:13)
[2023-09-15] MEDS ORDERED: fentaNYL citrate PF 100 MCG/2 ML VIAL ONE ×3 (07:13→09:27)
[2023-09-15] MEDS: LR 60ML/HR IV SCH (07:49)
[2023-09-15] MEDS: LR 15ML/HR IV SCH (07:53)
[2023-09-15] MEDS ORDERED: ATROPINE SULFATE 0.1 MG/ML 10ML SYR IV PRN (08:31)
[2023-09-15] MEDS ORDERED: ONDANSETRON INJ 2 MG/ML 2 ML VIAL IV PRN ×2 (08:31→11:51)
[2023-09-15] MEDS ORDERED: ePHEDrine sulfate 50 MG/ML AMP IV PRN (08:31)
[2023-09-15] MEDS: TRANEXAMIC ACID 1,000 MG **IV Pre-op IV SCH (08:46)
[2023-09-15] MEDS ORDERED: PROPOFOL IV EMULSION 10 MG/ML 20 ML VIAL IV ONE (09:00)
[2023-09-15] MEDS ORDERED: SUCCINYLCHOLINE CHLORIDE 20 MG/ML 10 ML VIAL IV ONE (09:00)
[2023-09-15] MEDS ORDERED: ROCURONIUM BROMIDE 10 MG/ML 5 ML VIAL IV ONE (09:00)
[2023-09-15] MEDS ORDERED: SUGAMMADEX SODIUM 200 MG/2 ML VIAL IV ONE ×2 (09:00)
[2023-09-15] MEDS ORDERED: ONDANSETRON INJ 2 MG/ML 2 ML VIAL ONE (09:00)
[2023-09-15] MEDS ORDERED: DEXAMETHASONE SOD INJ 4 MG/ML VIAL ONE (09:00)
[2023-09-15] MEDS: ceFAZolin 3000MG 3,000 MG/72.5 ML BAG IV SCH (09:02)
[2023-09-15] MEDS ORDERED: PHENYLEPHRINE 100MCG/ML 10ML SYR IV ONE (09:04)
[2023-09-15] MEDS: ORTHO JOINT ANESTHETIC ONE (09:27)
[2023-09-15] MEDS: TRANEXAMIC ACID 1,000 MG **IV Intra-op IV SCH (09:51)
[2023-09-15] MEDS: ceFAZolin 2,000 MG/15 ML IV PUSH IV ONE (09:52)
[2023-09-15] MEDS: ROPIVACAINE 0.5% HCL/PF 246 MG, Ketorolac (*for OR use only*) 30 MG, EPINEPHrine 30MG/3... INFIL SCH (10:09)
--- NOTE | 2023-09-15 10:20 | Post Operative Brief Note ---
Immediate Post Op Note Date of Surgery September 15, 2023 Pre & Post Diagnosis Operation Date: 09/15/23 08:50 Pre-Op Diagnosis: Right Knee Degenerative Joint Disease Post-Op Diagnosis: Right Knee Degenerative Joint Disease I identified the patient and participated in the time-out.: Yes Procedure Operation Date: 09/15/23 08:50 Actual Procedures p Right Total Knee Arthroplasty(Right) - Jorje Bullock MD Surgeon Jorje Bullock MD [facility] resident or fellow available Estimated Blood Loss 50 Findings Consistent with Post-Op Diagnosis Severe osteoarthritis medial compartment patellofemoral joint varus alignment Fluids See anesthesia report Complications None
--- NOTE | 2023-09-15 10:23 | Operative Report ---
Post Operative Report Pre & Post Diagnosis Operation Date: 09/15/23 08:50 Pre-Op Diagnosis: Right Knee Degenerative Joint Disease Post-Op Diagnosis: Right Knee Degenerative Joint Disease I identified the patient and participated in the time-out.: Yes Procedure Operation Date: 09/15/23 08:50 Actual Procedures p Right Total Knee Arthroplasty(Right) - Jorje Bullock MD Surgeon Jorje Bullock MD [employer]pensing Supervisor Anny no resident or fellow available Estimated Blood Loss 50 Findings Consistent with Post-Op Diagnosis Severe medial patellofemoral disease Fluids See anesthesia Specimens Bone pathology Drains None Complications None Indications Severe pain failed conservative management Description of Procedure After the patient was appropriately identified site verified consent verified antibiotics confirmed as being given the right lower extremity was prepped and draped use routine fashion. The tourniquet was inflated to 300 mmHg for total of approximately 50 minutes. Midline exposure was utilized parapatellar arthrotomy performed synovectomy completed osteophytes resected distal femur entered cruciates resected tibia subluxated menisci resected. Distal femur resected 9 mm proximal tibia 4 mm extension gap was excellent. Femur was then sized to a size 5 and appropriate cutting block applied anterior posterior, chamfer cuts made. The flexion gap was checked and was excellent posterior capsule was injected with the Ortho mix. The box cut was then made to size 5 femur fit well. The tibia was then broached and reamed to a size 4 and 6 mm spacer size 5 matching the femur fit well and allowed excellent range of motion excellent midrange stability full extension full flexion. Patella slightly now tracked the light lengthening of the lateral retinaculum was performed did not go through the synovium and allowed excellent tracking. The patella was very small of the resection was only 7 mm left about 12 mm thick. The 35 button was then seated. It tracked well. Ortho mix was then injected about the knee all trial elements were removed wound was irrigated with Betadine Pulsavac and then the permanent cemented into position tibia femur and patella in that order a 12 minutes tourniquet deflated minor bleeding points controlled electrocautery at 14 minutes the trial spacer was removed no cement removal was required wound was irrigated with Betadine Pulsavac and then the permanent liner seated the knee reduced and closed at 40 degrees of flexion using #2 Vicryl 2-0 Vicryl and standstill clips appropriate dressing applied the patient transferred to recovery in satisfactory addition he tolerated the procedure well. EBL was 75 cc or less crystalloid per anesthesia bone pathology pending DVT prophylaxis per protocol. Summary of implants ATT UNE total knee system by [employer] size 5 femur size 4 tibia 6 mm thick spacer size 5 matching the femur 35 patella 2 bags of [place] G cement. I attest to the content of the Intraoperative Record and any orders documented therein. Any exceptions are noted below.
--- NOTE | 2023-09-15 10:24 | Orthopedic Progress Note ---
Date of Service September 15, 2023 Orthopedic Progress Note Postop note status post right total knee replacement tolerated well. No major issues. Vital signs stable denies chest pain shortness breath fever chills nausea vomiting or headache. X-rays pending. Continue with care pathway. Family contacted.
--- NOTE | 2023-09-15 10:26 | Discharge Summary ---
Date of Service September 16, 2023 Admission HPI Per Admitting Provider Osteoarthritis right knee Principal Diagnosis Osteoarthritis right knee Discharge Data Allergies Allergy/AdvReac Type Severity Reaction Status Date / Time Penicillins Allergy Unknown Knee Verified 09/15/23 07:14 swelling Sulfa (Sulfonamide Allergy Unknown Rash Verified 09/15/23 07:14 Antibiotics) fluticasone Allergy Verified 09/15/23 07:14 [From Advair Diskus] omeprazole Allergy Verified 09/15/23 07:14 salmeterol Allergy Verified 09/15/23 07:14 [From Advair Diskus] purell Allergy Intermediate lips swell Uncoded 09/15/23 07:14 adilene products Allergy Unknown J&J Uncoded 09/15/23 07:14 CLEANING PRODCUTS - Rash, BLISTERS MOUTH/THROAT, SINUSES Vaccinations None Consultations None Procedures Performed Operation Date: 09/15/23 08:50 Actual Procedures p Right Total Knee Arthroplasty(Right) - Jorje Bullock MD Ordered Studies 09/15/23 05:00 US - OR guided needle placemen Routine Hospital Course (1) Status post left knee replacement: (2) Status post right knee replacement: Patient had an acute Plan Continue care pathway for right total knee replacement Total Time Total Time Spent Total Time Spent (In Minutes): 5 minutes Discharge Plan Discharge Items Reason For Visit: Right Knee Osteoarthritis Discharge Diagnosis: Same Condition on Discharge: Good Activity: Per Instructions section Lifting: Gradually increase as tolerated Bathing: Keep incision dry Sexual Activity: Wait until after follow-up appointment Exercise/Sports: Wait until after follow-up appointment Follow-up/Referrals: Noelle Lovelace CRNP [Primary Care Provider] - Addtl Attending Provider Instructions: DIET: * Resume previous diet. MEDICATIONS: * Please take your prescriptions as instructed at your pre-op appointment and/or see medication discharge instructions listed above. * If concerns develop, call your physician's office at . SPECIAL CARE INSTRUCTIONS: * Ice/Elevate as instructed. * Keep dressing clean, dry, intact. * Your surgical extremity may be discolored due to prepping agents used on the skin. A bluish-green tint is a normal variant and should not cause alarm. Call your doctor at [phone] if: * Temperature above 101 degrees * Pain not relieved by pain medicine ordered * There is increased drainage or redness from any incision * You have any unanswered questions, problems or concerns. FOLLOW UP VISIT: * If not already scheduled, please call the office at to schedule a follow-up appointment. Pending Studies at Discharge: Yes (Bone pathology) Stand-Alone Forms: My [facility] Medications and DC Order Prescriptions: No Action cinnamon bark 1 dose PO QAM multivitamin Tablet 1 tab PO QDD metformin 500 mg Tablet 500 mg PO QAM Januvia 25 mg Tablet 25 mg PO PM Hair, Skin, Nails with Biotin 7.5-7.5-1,250 mg-unit-mcg Tablet,Chewable 1 tab PO QAM Fibermucil 1 tabs PO BID Cranberry Urinary Tract Health 250-30-3.5 mg Tablet 1 tab PO DAILY albuterol sulfate 90 mcg/actuation Hfa Aerosol Inhaler 1 inh INHALATION QID PRN (Reason: Wheezing) loratadine [Claritin] 10 mg Tablet 10 mg PO DAILY PRN (Reason: Congestion) aspirin [Aspir-81] 81 mg Tablet,Delayed Release (Dr/Ec) 81 mg PO DAILY PRN (Reason: Pain) lisinopril 2.5 mg Tablet 2.5 mg PO DAILY berberine-herbal comb no.18 Capsule 1 cap PO QAM Circulation And Vein Support 1 tab PO BID Patient Comments: OTC Admission Data Admit Date/Time: 09/15/23 10:43 Attending Provider: Jorje Bullock Admit Provider: Jorje Bullock Primary Care Provider: Noelle Lovelace
--- NOTE | 2023-09-15 10:35 | Operative Report ---
Post Operative Report Pre & Post Diagnosis Operation Date: 09/15/23 08:50 Pre-Op Diagnosis: Right Knee Degenerative Joint Disease Post-Op Diagnosis: Right Knee Degenerative Joint Disease I identified the patient and participated in the time-out.: Yes Procedure Operation Date: 09/15/23 08:50 Actual Procedures p Right Total Knee Arthroplasty(Right) - Jorje Bullock MD Surgeon CHIVO Bullock MD Gas Worker Anny RAMIREZ no resident or fellow available Estimated Blood Loss 50 Findings Consistent with Post-Op Diagnosis see operative report Specimens see operative report Drains none Complications none Disposition Accompanied Patient To Recovery: Yes Indications This 63 year old female presented to the office with complaints of persisting right knee pain. She had tried conservative care measures without improvement. She elected to proceed with surgical intervention after being educated about potential risks and outcomes. Preoperative imaging was obtained. Description of Procedure The patient was given a spinal anesthetic and then taken to the operating room where she was given sedation. She was prepped and draped in the usual sterile fashion. Please see Dr. Bullock's operative report for specifics of the procedure. I was present for the entire case from initial patient positioning through final closure. Assistance was provided in tissue retraction, hemostasis, trial implant placement, final implant placement, and final wound closure. The patient was taken to the recovery room in satisfactory condition. I attest to the content of the Intraoperative Record and any orders documented therein. Any exceptions are noted below.
[2023-09-15] MEDS: fentaNYL citrate PF 100 MCG/2 ML VIAL IV PRN (10:39)
[2023-09-15] MEDS: HYDROmorphone INJ 1 MG/ML SYRINGE IV PRN (11:00)
--- NOTE | 2023-09-15 11:25 | XRay Report ---
XR knee RT 1 or 2V routine HISTORY: 63 years-old Female S/P R TKA right knee arthroplasty COMPARISON: 08/27/2023 TECHNIQUE: 2 views of the right knee FINDINGS: Total joint arthroplasty with patellar resurfacing. Anterior midline skin jasbir with expected posto perative soft tissue swelling and deep tissue air. No acute fracture, dislocation or unexpected opaqu e foreign body. IMPRESSION: Total joint arthroplasty with expected postoperative changes. ACT 112: Negative or not required by law. The above report was generated using voice recognition software. It may contain grammatical, syntax o r spelling errors. Electronically signed by: Enrico Cloud M.D. 09/15/2023 11:23 AM
[2023-09-15] MEDS ORDERED: VANCOMYCIN CONSULT ACTIVE PRN (11:51)
[2023-09-15] MEDS ORDERED: HYDROmorphone INJ 0.5 MG/0.5 ML SYR IV PRN (11:51)
[2023-09-15] MEDS ORDERED: ASPIRIN 81 MG ECTAB PO PRN (11:51)
[2023-09-15] MEDS ORDERED: LORATADINE 10 MG TAB PO PRN (11:51)
[2023-09-15] MEDS ORDERED: NALOXONE HCL 0.4 MG/1 ML VIAL/CARP IV PRN (11:51)
[2023-09-15] MEDS ORDERED: PHARMACY GLYCEMIC MGMT CONSULT PRN (11:51)
[2023-09-15] MEDS ORDERED: ALBUTEROL HFA 8 GM INHALER INH PRN (11:51)
[2023-09-15] MEDS ORDERED: MAGNESIUM HYDROXIDE SUSP 30 ML UDC PO PRN (11:51)
[2023-09-15] MEDS ORDERED: METOCLOPRAMIDE HCL INJ 5 MG/ML 2 ML VIAL IV PRN (11:51)
[2023-09-15] MEDS ORDERED: bisacodyL 10 MG SUPP PR PRN (11:51)
[2023-09-15] MEDS ORDERED: ALUMINUM/MAGNESIUM SUSP 30 ML UDC PO PRN (11:51)
[2023-09-15] MEDS: KETOROLAC 30 MG/ML VIAL ONE (11:59)
[2023-09-15] MEDS: KETOROLAC TROMETHAMINE 15 MG/ML VIAL IV SCH ×2 (12:00→17:18)
--- NOTE | 2023-09-15 12:27 | Anesthesiology Progress Note ---
Date of Service September 15, 2023 Anesthesia Post Procedure Vital Signs Vital Signs: Temp Pulse Pulse Resp BP Pulse Ox O2 Del Method 09/15/23 12:10 69 12 132/64 97 Nasal Cannula 09/15/23 11:55 71 12 148/56 H 97 Nasal Cannula 09/15/23 11:40 36.5 C 69 15 142/72 H 98 Nasal Cannula 09/15/23 11:25 36.5 C 75 16 142/72 H 92 Nasal Cannula 09/15/23 11:15 75 16 116/62 97 Nasal Cannula 09/15/23 11:05 74 21 126/68 99 Nasal Cannula 09/15/23 10:55 79 19 107/62 94 Nasal Cannula 09/15/23 10:45 83 18 129/62 96 Nasal Cannula 09/15/23 10:37 36.2 C L 86 18 128/59 L 99 Oxymask 09/15/23 07:27 36.8 C 73 20 179/97 H 94 Room Air O2 Flow Rate 09/15/23 12:10 2 09/15/23 11:55 2 09/15/23 11:40 2 09/15/23 11:25 2 09/15/23 11:15 4 09/15/23 11:05 4 09/15/23 10:55 4 09/15/23 10:45 4 09/15/23 10:37 9 09/15/23 07:27 Pain Intensity Right Knee: Pain Intensity: 4 Transfer of Care Handoff Completed per policy Notes Mental Status: alert / awake / arousable and participated in evaluation Patient Amnestic to Procedure: Yes Nausea / Vomiting: adequately controlled Pain: adequately controlled Airway Patency, RR, SpO2: stable & adequate BP & HR: stable & adequate Hydration State: stable & adequate Anesthetic Complications: no major complications apparent and Pt Satisfied with anesthetic care
[2023-09-15] MEDS: SODIUM CHLORIDE 0.9% 1,000 ML IV SCH (13:25)
--- NOTE | 2023-09-15 14:28 | Pharmacy Report ---
Pharmacy Glycemic Short Note 2 - Date of Service September 15, 2023 - Glycemic Short BSG Results (Last 24 hours): 09/15/23 09/15/23 09/15/23 07:16 10:35 13:40 POC Glucose 184 H 161 H 188 H OUTPATIENT ANTIDIABETIC REGIMEN: * Metformin 500 mg Daily, Sitagliptin 25 mg daily * A1c 7.3% 08/27/23 ASSESSMENT: * Patient admitted POD #0 following right total knee arthroplasty * Pre/post BSGs 184-161 mg/dL. * Will give 1x lantus dose with scale for PM ~ weight based stress of 2 (adjusted body weight) * Begin novolog weight bases stress of 3 (adjusted body weight) which is equivalent to weight stress of 2 total body weight PLAN FOR INPATIENT GLYCEMIC CONTROL: * Hold outpatient oral diabetes medications * Basal insulin * Lantus 15 units SQ x1, Scale for PM 0-10 units x 1 * Bolus insulin * NovoLog per scale ACHS or Q6hrs while NPO * Goal Range: Low 110 mg/dL - High 140 mg/dL * Correction Factor: 20 mg/dL/unit * Nutritional / Prandial insulin per carb ratio of 1 unit per 6 grams CHO consumed
[2023-09-15] MEDS: INSULIN ASPART PER UNIT CHARGE SC SCH (14:40)
[2023-09-15] MEDS: ACETAMINOPHEN 500 MG TAB PO SCH (14:41)
[2023-09-15] MEDS: LANTUS PER UNIT CHARGE SC ONE ×2 (14:41→20:53)
[2023-09-15] MEDS: VANCOMYCIN HCL 2,000 MG in SODIUM CHLORIDE 0.9% 500 ML IV ONE (14:56)
[2023-09-15] MEDS: FERROUS GLUCONATE 324 MG TAB PO SCH (17:17)
[2023-09-15] MEDS: ASCORBIC ACID 500 MG TAB PO SCH (17:18)
[2023-09-15] MEDS: ceFAZolin 2000MG 2,000 MG/15 ML SYR IV SCH (17:24)
[2023-09-15] MEDS: DOCUSATE SODIUM 100 MG CAP PO SCH (20:39)
[2023-09-15] MEDS: diphenhydrAMINE 50 MG/ML VIAL IV PRN (20:40)
[2023-09-15] MEDS: SENNA 8.6 MG TAB PO SCH (20:48)
[2023-09-15] MEDS ORDERED: SITagliptin PHOSPHATE 25 MG TAB PO SCH (21:00)
[2023-09-16] MEDS: INSULIN ASPART PER UNIT CHARGE SC SCH (00:37)
[2023-09-16 06:14] LABS: Hematocrit (blood only) 35.1 % (37.0-47.0); Hemoglobin 11.1 g/dl (12.0-16.0); Mean Corpuscular Hemoglobin 27.7 pg (25.0-34.0); Mean Corpuscular Hgb Conc 31.6 g/dL (32.0-36.0); Mean Corpuscular Volume 87.5 fL (80.0-100.0); Platelet Count 186 K/uL (130-400); RDW Coefficient of Variation 13.5 % (11.5-14.5); RDW Standard Deviation 42.6 fL (36.4-46.3); Red Blood Count 4.01 M/uL (4.20-5.40); White Blood Count 9.26 K/ul (4.8-10.8)
--- NOTE | 2023-09-16 06:14 | Orthopedic Progress Note ---
Date of Service September 16, 2023 Assessment & Plan Admission and Anticipated Discharge Date Admission Date: September 15, 2023 Orthopedic Progress Note Postop day 1 status post right total knee replacement wound dressing clean dry and intact. Patient denies chest pain shortness of breath fever chills nausea vomiting headache. Vital signs are stable she is afebrile. Neurovascular check femoral sciatic nerve is normal. He is up ambulating. A.m. labs are pending. Assessment doing well discharged home today after PT OT and dressing change. DVT prophylaxis per protocol.
[2023-09-16 06:19] LABS: BUN Creatinine Ratio 25.8 (10-20); Calcium 9.1 mg/dl (8.6-10.3); Creatinine Clr Calc Pharmacy 84.2 ml/min; Est GFR (African American) 74.7 ml/min; Est GFR (Non-African American) 64.5 ml/min; Potassium 4.9 mmol/L (3.5-5.1)
[2023-09-16] MEDS: MULTIVITAMIN TAB PO SCH (08:10)
[2023-09-16] MEDS: APIXABAN 2.5 MG TAB PO SCH (08:10)
[2023-09-16] MEDS: lisinopril 2.5 MG TAB PO SCH (08:11)
[2023-09-16] MEDS: LANTUS PER UNIT CHARGE SC SCH (08:23)
--- NOTE | 2023-09-16 09:20 | Orthopedic Progress Note ---
Date of Service September 16, 2023 Assessment & Plan (1) Status post right knee replacement: Plan: The patient was seen in her room this morning. Her dressings were changed by me. Jayme stocking was applied. She will keep the dressing in place over the weekend. It may be changed on Wednesday by home health if needed for soiling. Continue using the knee immobilizer today and tomorrow. It may be discontinued altogether on Wednesday morning. Continue icing and elevating the knee to reduce pain and swelling. Use the walker for ambulation. Prescriptions for Percocet and Eliquis were sent to her pharmacy. Follow-up in the office with me in 2 weeks as scheduled for staple removal. Written discharge instructions were provided. Call the office with any other concerns. Admission and Anticipated Discharge Date Admission Date: September 15, 2023 Subjective This 63-year-old female is seen today in her room. She is 1 day status post right total knee arthroplasty. She states she is doing well. She has already been up and walking in the hallway. She denies any chest pain, shortness of breath, nausea, vomiting, or abdominal pain. She states her knee pain is controlled. She feels ready for discharge to home. No other complaints. Review of Systems Review of Systems: Unchanged from yesterday. Physical Exam Physical Exam: General: Well-developed, well-nourished, middle-aged female, in no acute distress. Ambulating in her room with her knee immobilizer and walker. She is able to sit in her bedside chair without difficulty. Skin: Warm and dry with good turgor. Postsurgical dressings are in place on the right knee. Upon removal, she has a healing anterior surgical incision. Judi are in place. Wound edges are well-approximated. Expected postoperative edema. No ecchymosis or erythema. No active bleeding. There is scant dried blood on her inner dressings. Musculoskeletal: The patient is able to set her quad and perform a straight leg raise. She has intact motor function of the ankle. There is full terminal extension of the knee. Flexion to around 40 degrees without difficulty. Ambulating in her room as stated. Neurologic: Gross sensation is intact across the right leg by soft touch. Peripheral pulses are 2+. Results & Data Vital Signs (Past 12 Hours) Vital Signs Temp Pulse Resp BP BP Pulse Ox O2 Del Method 06/06/24 07:43 36.6 C 75 16 147/82 H 92 Room Air 09/16/23 04:06 36.6 C 78 18 138/80 93 Room Air 09/15/23 23:09 37 C 77 18 129/79 92 Room Air Laboratory Results CBC obtained this morning shows a white count of 9.26. H&H of 11.1 and 35.1. Platelets normal at 186,000. Electrolytes are within normal limits. Glucose this morning was 152.
[2023-09-16] MEDS: oxyCODONE HCL IR 5 MG TAB (IMMEDIATE RELEASE) PO PRN (10:20)
--- NOTE | 2023-09-16 11:00 | Pharmacy Report ---
Pharmacy Glycemic Short Note 2 - Date of Service September 16, 2023 - Glycemic Short BSG Results (Last 24 hours): 09/15/23 09/15/23 09/15/23 13:40 16:48 20:41 Glucose POC Glucose 188 H 197 H 181 H 09/16/23 09/16/23 09/16/23 00:03 04:05 05:21 Glucose 152 H POC Glucose 125 H 148 H 09/16/23 07:31 Glucose POC Glucose 143 H OUTPATIENT ANTIDIABETIC REGIMEN: * Metformin 500 mg Daily, Sitagliptin 25 mg daily * A1c 7.3% 08/27/23 ASSESSMENT: 09/15 * Patient received total of 46 units of insulin yesterday, of which 25 units were basal insulin * Fasting BSG 152 mg/dL - ordered 15 units basal this AM. Anticipate steroid effects to wear off today, no further steroids ordered. No need for PM basal * CF/CR loosened slightly this AM 09/14 * Patient admitted POD #0 following right total knee arthroplasty * Pre/post BSGs 184-161 mg/dL. * Will give 1x lantus dose with scale for PM ~ weight based stress of 2 (adjusted body weight) * Begin novolog weight bases stress of 3 (adjusted body weight) which is equivalent to weight stress of 2 total body weight PLAN FOR INPATIENT GLYCEMIC CONTROL: * Hold outpatient oral diabetes medications * Basal insulin * Lantus 15 units daily * Bolus insulin * NovoLog per scale ACHS or Q6hrs while NPO * Goal Range: Low 110 mg/dL - High 140 mg/dL * Correction Factor: 25 mg/dL/unit * Nutritional / Prandial insulin per carb ratio of 1 unit per 8 grams CHO consumed
== END 2023-09-16 13:06 | disposition home health service (06) ==
LOC: ASU 06:46 → 3E 06:46